=== PATIENT | female | born 1960 | race Asian ===

== ENCOUNTER 2024-01-19 09:01 | Outpatient (RCR) | payer MEDICARE, SELFPAY ==
[2024-01-03 09:53] VITALS: BP 113/54; PULSE 100
== END 2024-03-22 13:40 | disposition home or self-care (01) ==
LOC: HO.PT 09:01
PROVIDERS: PCP Pediatrics; Visit Provider Pediatrics
DX: G43.409 Hemiplegic migraine, not intractable, without status migrainosus (principal); Z86.73 Personal history of transient ischemic attack (TIA), and cerebral infarction without residual deficits
CPT/HCPCS: 97110; 97140; 97163

== ENCOUNTER 2024-04-12 13:52 | Outpatient (RCR) | payer MEDICARE, SELFPAY | END 2024-05-22 07:28 | disposition home or self-care (01) | LOC: HO.PT 13:52 | PROVIDERS: PCP Pediatrics; Visit Provider Pediatrics | DX: Z86.73 Personal history of transient ischemic attack (TIA), and cerebral infarction without residual deficits (principal); G62.9 Polyneuropathy, unspecified | CPT/HCPCS: 97110; 97162; 97530 ==